=== PATIENT | female | born 1965 | race Caucasian/White ===

== ENCOUNTER 2022-01-28 10:17 | Observation (INO) | payer MEDICARE, MEDICAID ==
[2022-01-28 12:01] VITALS: BMI 55.2
[2022-01-28] MEDS ORDERED: Ondansetron PF 4 MG/2 ML Vial IVP PRN (12:36)
[2022-01-28] MEDS ORDERED: Acetaminophen 325 MG TAB PO PRN (12:36)
[2022-01-28] MEDS ORDERED: Acetaminophen 650 MG Suppository PR PRN (12:36)
[2022-01-28] MEDS ORDERED: Ondansetron ODT 4 MG TAB PO PRN (12:36)
[2022-01-28] MEDS ORDERED: Dextrose 5% in Water 1,000 ML IV PRN (12:46)
[2022-01-28] MEDS ORDERED: Dextrose 50% Abboject 50 ML SYRINGE SLOW IVP PRN (12:46)
[2022-01-28] MEDS ORDERED: HumaLOG 300 UNITS/3 ML VIAL SC PRN (12:46)
[2022-01-28 13:36] LABS: #Monocytes 0.7 10x3/uL (0.0-1.1); #Neutrophils 6.3 10x3/uL (1.5-8.4); %Basophils 0.4 % (0.0-2.0); %Eosinophils 0.3 % (0.0-6.0); %Lymphocytes 25.1 % (18.0-47.0); %Monocytes 7.2 % (0.0-10.0); %Neutrophils 66.7 % (40.0-75.0); Hemoglobin 9.2 g/dL (12.0-15.5); Mean Corpuscular HGB CONC 32.1 g/dL (32.0-36.0); Mean Corpuscular Hemoglobin 30.1 pg (27.0-33.0); Mean Corpuscular Volume 93.8 fl (81.6-98.3); Mean Platelet Volume 9.7 fl (7.4-10.4); Platelet Count 206 10x3/uL (150-450); RBC Distribution Width 12.7 % (11.5-14.5); Red Blood Cell (RBC) Count 3.06 10x6/uL (3.90-5.03); White Blood Cell (WBC) Count 9.4 10x3/uL (3.5-10.5)
[2022-01-28 13:59] LABS: ALT (SGPT) 13 U/L (8-55); AST (SGOT) 27 U/L (5-34); Albumin 3.8 g/dL (3.5-5.0); Alkaline Phosphatase 49 U/L (40-110); Anion Gap 13 mmol/L (10-20); BUN (Urea Nitrogen) 12 mg/dL (9.8-20.1); Bilirubin, Total 0.3 mg/dL (0.2-1.2); Calc. Creatinine Clearance 108 mL/min (70-130); Calcium 8.7 mg/dL (7.8-10.44); Carbon Dioxide 26 mmol/L (22-29); Chloride 101 mmol/L (98-107); Globulin 2.7 g/dL (2.4-3.5); Glucose 168 mg/dL (70-105); Protein, Total 6.5 g/dL (6.0-8.3); Sodium 136 mmol/L (136-145)
[2022-01-28 14:22] LABS: CKMB 1.7 ng/mL (0-6.6)
[2022-01-28] MEDS: HumaLOG 300 UNITS/3 ML VIAL SC PRN (15:57)
[2022-01-28 18:04] LABS: Hemoglobin A1c 8.4 % (4.0-6.0)
[2022-01-28] MEDS ORDERED: Lorazepam 1 MG TAB PO SCH (18:34)
[2022-01-28 19:25] LABS: CKMB 2.3 ng/mL (0-6.6)
[2022-01-28] MEDS: Rosuvastatin 20 MG TAB PO SCH (20:20)
[2022-01-28] MEDS: Lantus 1000 UNITS/10 ML VIAL SC SCH (20:21)
[2022-01-28] MEDS: clonazePAM 0.5 MG TAB PO SCH (20:21)
[2022-01-28] MEDS ORDERED: Aspirin Chewable 81 MG TAB PO SCH (21:00)
[2022-01-28 23:50] LABS: SARS-CoV-2 PCR by NAA Not Detected (NotDetected)
[2022-01-29 00:55] LABS: CKMB 2.1 ng/mL (0-6.6)
[2022-01-29 04:41] LABS: #Basophils 0.1 10x3/uL (0.0-0.2); #Eosinphils 0.1 10x3/uL (0.0-0.5); #Monocytes 0.6 10x3/uL (0.0-1.1); #Neutrophils 4.7 10x3/uL (1.5-8.4); %Basophils 0.6 % (0.0-2.0); %Eosinophils 1.4 % (0.0-6.0); %Lymphocytes 31.1 % (18.0-47.0); %Monocytes 7.4 % (0.0-10.0); %Neutrophils 59.2 % (40.0-75.0); Hemoglobin 9.3 g/dL (12.0-15.5); Mean Corpuscular HGB CONC 33.7 g/dL (32.0-36.0); Mean Corpuscular Hemoglobin 30.9 pg (27.0-33.0); Mean Corpuscular Volume 91.7 fl (81.6-98.3); Mean Platelet Volume 9.7 fl (7.4-10.4); Platelet Count 200 10x3/uL (150-450); RBC Distribution Width 12.9 % (11.5-14.5); Red Blood Cell (RBC) Count 3.01 10x6/uL (3.90-5.03)
[2022-01-29 04:51] LABS: Anion Gap 14 mmol/L (10-20); BUN (Urea Nitrogen) 11 mg/dL (9.8-20.1); Calc. Creatinine Clearance 104 mL/min (70-130); Calcium 8.7 mg/dL (7.8-10.44); Carbon Dioxide 25 mmol/L (22-29); Chloride 104 mmol/L (98-107); Glucose 189 mg/dL (70-105); Potassium 4.3 mmol/L (3.5-5.1); Sodium 139 mmol/L (136-145)
[2022-01-29 05:17] LABS: CKMB 1.7 ng/mL (0-6.6)
[2022-01-29] MEDS ORDERED: Levothyroxine Sodium 88 MCG TAB PO SCH (06:00)
[2022-01-29] MEDS: Levothyroxine Sodium 100 MCG TAB PO SCH (06:03)
[2022-01-29] MEDS: HumaLOG 300 UNITS/3 ML VIAL SC PRN ×2 (06:20→18:59)
[2022-01-29] MEDS: Aspirin Chewable 81 MG TAB PO SCH (10:29)
[2022-01-29] MEDS: clonazePAM 0.5 MG TAB PO SCH ×2 (10:29→21:27)
[2022-01-29] MEDS: Lantus 1000 UNITS/10 ML VIAL SC SCH (21:16)
[2022-01-29] MEDS: Rosuvastatin 20 MG TAB PO SCH (21:27)
[2022-01-30 04:33] LABS: #Eosinphils 0.2 10x3/uL (0.0-0.5); #Monocytes 0.7 10x3/uL (0.0-1.1); #Neutrophils 4.3 10x3/uL (1.5-8.4); %Basophils 0.5 % (0.0-2.0); %Eosinophils 2.6 % (0.0-6.0); %Lymphocytes 32.1 % (18.0-47.0); %Monocytes 9.2 % (0.0-10.0); %Neutrophils 55.5 % (40.0-75.0); Hemoglobin 9.1 g/dL (12.0-15.5); Mean Corpuscular Hemoglobin 30.8 pg (27.0-33.0); Mean Corpuscular Volume 90.8 fl (81.6-98.3); Mean Platelet Volume 9.7 fl (7.4-10.4); Platelet Count 204 10x3/uL (150-450); RBC Distribution Width 12.8 % (11.5-14.5); Red Blood Cell (RBC) Count 2.95 10x6/uL (3.90-5.03); White Blood Cell (WBC) Count 7.8 10x3/uL (3.5-10.5)
[2022-01-30 04:39] LABS: Anion Gap 15 mmol/L (10-20); BUN (Urea Nitrogen) 16 mg/dL (9.8-20.1); Calc. Creatinine Clearance 99 mL/min (70-130); Calcium 8.8 mg/dL (7.8-10.44); Carbon Dioxide 22 mmol/L (22-29); Chloride 105 mmol/L (98-107); Glucose 181 mg/dL (70-105); Potassium 3.9 mmol/L (3.5-5.1); Sodium 138 mmol/L (136-145)
[2022-01-30] MEDS: Levothyroxine Sodium 100 MCG TAB PO SCH (06:38)
[2022-01-30] MEDS: Aspirin Chewable 81 MG TAB PO SCH (08:55)
[2022-01-30] MEDS: clonazePAM 0.5 MG TAB PO SCH (08:56)
[2022-01-30 12:36] VITALS: BP 133/72; TEMP 98.1
[2022-01-30] MEDS: HumaLOG 300 UNITS/3 ML VIAL SC PRN (12:51)
== END 2022-01-30 15:00 | disposition home or self-care (01) ==
LOC: INTOOBSV 10:47 → CSHTELE 10:47
PROVIDERS: ADMIT Hospitalist; ATTEND Hospitalist
DX: F19.939 Other psychoactive substance use, unspecified with withdrawal, unspecified (principal); F41.9 Anxiety disorder, unspecified; F32.A Depression, unspecified; E10.65 Type 1 diabetes mellitus with hyperglycemia; E78.5 Hyperlipidemia, unspecified; E03.9 Hypothyroidism, unspecified; Z79.899 Other long term (current) drug therapy; Z79.4 Long term (current) use of insulin; Z95.810 Presence of automatic (implantable) cardiac defibrillator; B33.24 Viral cardiomyopathy; R77.8 Other specified abnormalities of plasma proteins; I50.9 Heart failure, unspecified; Z20.822 Contact with and (suspected) exposure to COVID-19
CPT/HCPCS: 80048 ×2; 80053; 82140; 82306; 82553 ×2; 82607; 82746; 82962 ×3; 83036; 83090; 83921; 84425; 84484 ×2; 85025 ×3; 93306; 94760 ×2; 97116; 97139; G0378 ×3; U0003; U0005; 36415; 36416; J1815; Q0162

== ENCOUNTER 2022-05-01 21:57 | Observation (INO) | payer MEDICARE, MEDICAID ==
[2022-05-01] MEDS ORDERED: Ondansetron PF 4 MG/2 ML Vial ONE (22:46)
[2022-05-01 22:57] LABS: #Eosinphils 0.2 10x3/uL (0.0-0.5); #Monocytes 0.8 10x3/uL (0.0-1.1); #Neutrophils 4.7 10x3/uL (1.5-8.4); %Basophils 0.2 % (0.0-2.0); %Eosinophils 1.9 % (0.0-6.0); %Lymphocytes 35.1 % (18.0-47.0); %Monocytes 9.4 % (0.0-10.0); %Neutrophils 53.3 % (40.0-75.0); Hemoglobin 9.6 g/dL (12.0-15.5); Mean Corpuscular HGB CONC 34.3 g/dL (32.0-36.0); Mean Corpuscular Hemoglobin 30.9 pg (27.0-33.0); Mean Platelet Volume 10.3 fl (7.4-10.4); Platelet Count 188 10x3/uL (150-450); Red Blood Cell (RBC) Count 3.11 10x6/uL (3.90-5.03); White Blood Cell (WBC) Count 8.7 10x3/uL (3.5-10.5)
[2022-05-01 23:16] LABS: ALT (SGPT) 19 U/L (8-55); AST (SGOT) 32 U/L (5-34); Alkaline Phosphatase 52 U/L (40-110); Anion Gap 12 mmol/L (10-20); BUN (Urea Nitrogen) 13 mg/dL (9.8-20.1); Bilirubin, Total 0.2 mg/dL (0.2-1.2); CK (CPK) 112 U/L (29-168); Calc. Creatinine Clearance 0 mL/min (70-130); Calcium 9.3 mg/dL (7.8-10.44); Carbon Dioxide 24 mmol/L (22-29); Chloride 103 mmol/L (98-107); Estimated GFR 64; Globulin 3.3 g/dL (2.4-3.5); Glucose 144 mg/dL (70-105); Lipase 20 U/L (8-78); Magnesium 1.9 mg/dL (1.6-2.6); Potassium 3.2 mmol/L (3.5-5.1); Protein, Total 7.3 g/dL (6.0-8.3); Sodium 136 mmol/L (136-145)
[2022-05-01 23:19] LABS: Actual Bicarbonate (HCO3v) 25 mEq/L (22-28); Base Excess 1.7 mEq/L (-2.0 to +3.0); Calcium, Ionized (venous) 1.06 mmol/L (1.16-1.32); Chloride (VBG) 105 mmol/L (98-106); Critical Notified By: CP.PH; Hemoglobin (Hb) 10.6 g/dL (11.7-16.0); Potassium (VBG) 3.36 mmol/L (3.70-5.30); Puncture Site Other Site; RapidComm Collect By LAB.YY; pH (venous) 7.48 (7.32-7.43)
[2022-05-01 23:40] LABS: SARS-CoV-2 NAA Rapid Test Not Detected (NotDetected)
[2022-05-02] MEDS ORDERED: Ondansetron PF 4 MG/2 ML Vial IVP PRN (01:49)
[2022-05-02] MEDS ORDERED: Dextrose 5% in Water 1,000 ML IV PRN (01:49)
[2022-05-02] MEDS ORDERED: Acetaminophen 325 MG TAB PO PRN (01:49)
[2022-05-02] MEDS ORDERED: Dextrose 50% Abboject 50 ML SYRINGE SLOW IVP PRN (01:49)
[2022-05-02] MEDS ORDERED: Calcium Carbonate 500 MG ChewTAB PO PRN (01:49)
[2022-05-02] MEDS ORDERED: Guaifenesin DM 100-10/5 ML UDCUP PO PRN (01:49)
[2022-05-02] MEDS ORDERED: Senokot S 8.6-50 MG TAB PO PRN (01:49)
[2022-05-02] MEDS ORDERED: Lactated Ringer's 500 ML IV SCH (02:00)
[2022-05-02] MEDS ORDERED: Potassium Phosphate 30 MMOL in Sodium Chloride 0.9% 250 ML 250 ML IVPB SCH (02:00)
[2022-05-02] MEDS ORDERED: Potassium Chloride 20 MEQ TAB PO SCH (02:15)
[2022-05-02 02:40] VITALS: BMI 20.9
[2022-05-02] MEDS ORDERED: traZODone HCl 50 MG TAB PO SCH ×2 (03:15→21:00)
[2022-05-02] MEDS ORDERED: clonazePAM 0.5 MG TAB PO SCH ×2 (03:15→09:00)
[2022-05-02] MEDS: HumaLOG 300 UNITS/3 ML VIAL SC PRN ×3 (05:55→15:39)
[2022-05-02] MEDS ORDERED: Levothyroxine Sodium 88 MCG TAB PO SCH (06:00)
[2022-05-02] MEDS ORDERED: Carvedilol 6.25 MG TAB PO SCH (09:00)
[2022-05-02] MEDS ORDERED: Enoxaparin Sodium 40 MG/0.4 ML SYRINGE SC SCH (09:00)
[2022-05-02] MEDS ORDERED: Cephalexin 500 MG CAP PO SCH (09:00)
[2022-05-02] MEDS ORDERED: Lisinopril 5 MG TAB PO SCH (09:00)
[2022-05-02] MEDS ORDERED: Magnesium Oxide 400 MG TAB PO SCH (09:00)
[2022-05-02 09:25] LABS: Anion Gap 13 mmol/L (10-20); BUN (Urea Nitrogen) 8 mg/dL (9.8-20.1); Calc. Creatinine Clearance 47 mL/min (70-130); Calcium 8.6 mg/dL (7.8-10.44); Carbon Dioxide 23 mmol/L (22-29); Chloride 111 mmol/L (98-107); Estimated GFR 68; Glucose 125 mg/dL (70-105); Potassium 4.3 mmol/L (3.5-5.1); Sodium 143 mmol/L (136-145)
[2022-05-02 11:20] LABS: Hemoglobin A1c 10.8 % (4.0-6.0)
[2022-05-02 16:07] VITALS: BP 95/64; TEMP 97.9
[2022-05-02] MEDS ORDERED: Rosuvastatin 20 MG TAB PO SCH (21:00)
[2022-05-02] MEDS ORDERED: Lantus 1000 UNITS/10 ML VIAL SC SCH (21:00)
== END 2022-05-02 17:10 | disposition home or self-care (01) ==
LOC: CSHERS 21:57 → CSHTELE 05-02 02:13
PROVIDERS: ADMIT Internal Medicine; ATTEND Internal Medicine
DX: R07.89 Other chest pain (principal); E10.65 Type 1 diabetes mellitus with hyperglycemia; E86.0 Dehydration; N17.9 Acute kidney failure, unspecified; E83.39 Other disorders of phosphorus metabolism; E87.6 Hypokalemia; B33.24 Viral cardiomyopathy; E78.5 Hyperlipidemia, unspecified; I10 Essential (primary) hypertension; E03.9 Hypothyroidism, unspecified; K21.9 Gastro-esophageal reflux disease without esophagitis; D64.9 Anemia, unspecified; Z79.899 Other long term (current) drug therapy; Z88.1 Allergy status to other antibiotic agents; Z88.2 Allergy status to sulfonamides; Z88.5 Allergy status to narcotic agent; Z88.8 Allergy status to other drugs, medicaments and biological substances; Z95.810 Presence of automatic (implantable) cardiac defibrillator; Z20.822 Contact with and (suspected) exposure to COVID-19
CPT/HCPCS: 0240U; 80048; 80053; 80061; 82010; 82550; 82805; 82962 ×2; 83036; 83690; 83735; 84100; 84484 ×2; 85025; 93005 ×2; 96372; 96374; 96375; 99285; G0378; 36415; 36416; 93010; J1650; J1815; J2405; J7050; J7120

== ENCOUNTER 2023-02-06 10:17 | Observation (INO) | payer MEDICARE, MEDICAID ==
[2023-02-06] MEDS ORDERED: cefTRIAXone (ROCEPHIN) 1 GM VIAL ONE (10:49)
[2023-02-06 10:52] LABS: Bilirubin Neg (Negative); Blood, Urine 10 (Negative); Clarity Clear (Clear); Glucose, Urine (Dipstick) >=1000 mg/dL (Negative); Ketone, Urine Negative (Negative); Leukocyte 100 (Negative); Nitrite Negative (Negative); Protein, Urine (Dipstick) Negative (Neg-Trace); Specific Gravity, Urine 1.015 (1.005-1.030); Urobilinogen Normal mg/dL (Less than 2)
[2023-02-06 11:03] LABS: #Monocytes 0.4 10x3/uL (0.0-1.1); %Basophils 0.2 % (0.0-2.0); %Eosinophils 0.2 % (0.0-6.0); %Lymphocytes 17.3 % (18.0-47.0); %Monocytes 4.3 % (0.0-10.0); %Neutrophils 77.8 % (40.0-75.0); Hemoglobin 12.3 g/dL (12.0-15.5); Mean Corpuscular HGB CONC 31.7 g/dL (32.0-36.0); Mean Corpuscular Hemoglobin 27.7 pg (27.0-33.0); Mean Corpuscular Volume 87.4 fl (81.6-98.3); Mean Platelet Volume 10.5 fl (7.4-10.4); Platelet Count 185 10x3/uL (150-450); RBC Distribution Width 17.7 % (11.5-14.5); Red Blood Cell (RBC) Count 4.44 10x6/uL (3.90-5.03)
[2023-02-06] MEDS ORDERED: traMADol HCl 50 MG TAB ONE (11:06)
[2023-02-06 11:17] LABS: RBC/HPF 0-3 HPF (0-3); Squamous Epithelial 21-50 HPF (0-3)
[2023-02-06 11:18] LABS: Bacteria/HPF Rare-Few HPF (None Seen)
[2023-02-06 12:38] LABS: ALT (SGPT) 14 U/L (8-55); AST (SGOT) 36 U/L (5-34); Albumin 3.6 g/dL (3.5-5.0); Alkaline Phosphatase 127 U/L (40-110); Anion Gap 22 mmol/L (10-20); BUN (Urea Nitrogen) 38 mg/dL (9.8-20.1); Bilirubin, Total 0.1 mg/dL (0.2-1.2); Calc. Creatinine Clearance 0 mL/min (70-130); Calcium 9.1 mg/dL (7.8-10.44); Carbon Dioxide 19 mmol/L (22-29); Chloride 102 mmol/L (98-107); Estimated GFR 39; Globulin 3.2 g/dL (2.4-3.5); Glucose 132 mg/dL (70-105); Potassium 4.4 mmol/L (3.5-5.1); Protein, Total 6.8 g/dL (6.0-8.3); Sodium 139 mmol/L (136-145)
[2023-02-06] MEDS ORDERED: Ondansetron PF 4 MG/2 ML Vial IVP PRN (13:21)
[2023-02-06] MEDS ORDERED: Acetaminophen 325 MG TAB PO PRN (13:21)
[2023-02-06] MEDS ORDERED: Ondansetron ODT 4 MG TAB PO PRN (13:21)
[2023-02-06] MEDS ORDERED: Sodium Chloride 0.9% 1,000 ML IV SCH (13:30)
[2023-02-06 13:50] LABS: Lactic Acid 5.7 mmol/L (0.5-2.2)
[2023-02-06] MEDS ORDERED: Bisacodyl 5 MG TAB PO PRN (13:56)
[2023-02-06] MEDS ORDERED: traMADol HCl 50 MG TAB PO PRN (13:56)
[2023-02-06 18:55] LABS: Hemoglobin A1c 10.1 % (4.0-6.0)
[2023-02-06] MEDS ORDERED: Lantus 1000 UNITS/10 ML VIAL SC SCH (21:00)
[2023-02-06] MEDS ORDERED: Famotidine 20 MG TAB PO SCH (21:00)
[2023-02-06] MEDS ORDERED: Sacubitril 24MG/Valsartan 26 MG TAB PO SCH (21:00)
[2023-02-06] MEDS ORDERED: traZODone HCl 50 MG TAB PO SCH (21:00)
[2023-02-06] MEDS ORDERED: Carvedilol 3.125 MG TAB PO SCH (21:00)
[2023-02-06] MEDS ORDERED: Rosuvastatin 20 MG TAB PO SCH (21:00)
[2023-02-06] MEDS ORDERED: Mirtazapine 15 MG TAB PO SCH (21:00)
[2023-02-07] MEDS ORDERED: Levothyroxine Sodium 88 MCG TAB PO SCH (06:00)
[2023-02-07] MEDS ORDERED: Polyethylene Glycol 3350 17 GM Packet PO SCH (09:00)
[2023-02-07] MEDS ORDERED: cefTRIAXone\\ROCEPHIN 1 GM in Sodium Chloride 0.9% 100 ML IVPB SCH (11:00)
== END 2023-02-06 23:00 | disposition short-term general hospital (02) ==
LOC: CSHERS 10:17 → CSHERHOLD 13:38
PROVIDERS: ADMIT Internal Medicine; ATTEND Internal Medicine
DX: N39.0 Urinary tract infection, site not specified (principal); R30.0 Dysuria; I11.0 Hypertensive heart disease with heart failure; I50.32 Chronic diastolic (congestive) heart failure; R74.02 Elevation of levels of lactic acid dehydrogenase [LDH]; E10.10 Type 1 diabetes mellitus with ketoacidosis without coma; E78.5 Hyperlipidemia, unspecified; E03.9 Hypothyroidism, unspecified; K21.9 Gastro-esophageal reflux disease without esophagitis; F41.9 Anxiety disorder, unspecified; F32.A Depression, unspecified; Z95.810 Presence of automatic (implantable) cardiac defibrillator; Z88.2 Allergy status to sulfonamides; Z88.1 Allergy status to other antibiotic agents; Z88.5 Allergy status to narcotic agent; Z88.6 Allergy status to analgesic agent; Z88.8 Allergy status to other drugs, medicaments and biological substances; Z79.899 Other long term (current) drug therapy; Z79.4 Long term (current) use of insulin; Z79.890 Hormone replacement therapy; D64.9 Anemia, unspecified; Z90.710 Acquired absence of both cervix and uterus; Z90.49 Acquired absence of other specified parts of digestive tract
CPT/HCPCS: 82962; 83036; 83605; 87040; 87086; 94762; 96365; 99285; G0378; 36415; 36416; 80053; 81003; 81015; 84443; 85025; J0696; J1815